=== PATIENT | male | born 1975 | race Hispanic/Latino ===

== ENCOUNTER → 2020-07-17 | Outpatient (CLI) | payer OTHER | END | disposition home or self-care (01) | LOC: RAH 11:06 | PROVIDERS: ATTEND Orthopaedic Surgery | DX: S80.02XA Contusion of left knee, initial encounter (principal); S83.242A Other tear of medial meniscus, current injury, left knee, initial encounter; S83.512A Sprain of anterior cruciate ligament of left knee, initial encounter; X58.XXXA Exposure to other specified factors, initial encounter; Y93.89 Activity, other specified; Y92.89 Other specified places as the place of occurrence of the external cause; Y99.8 Other external cause status | CPT/HCPCS: 73721 ==